=== PATIENT | male | born 1975 | race Caucasian/White ===

== ENCOUNTER 2017-04-19 19:50 | Emergency (ER) | payer BC ==
[~2017-04-19] VITALS: Ht 170.1 cm; Wt 113.4 kg
[~2017-04-19 19:50] MED LIST: AMARYL1 MG PO; ANTIVERT/2525 M1 PO; CHOLESTROL MED; CIPRO500 MG PO; GEMFIBROZIL600 MG PO; GLIMEPIRIDE4 M1 PO; HUMALOG100 U/ML SC; LANTUS100 U/ML SC; LEVAQUIN750 M1 PO; METFORMIN1000 MG PO; PERCOCET 325 MG1 TA7 PO; PRAVASTATIN SOD40 MG PO; XOPENEX HF0.045 MG/A IH; ZOFRAN ODT4 MG SL; [UNRECOGNIZED DRUG - OTHER]
[2017-04-19] MEDS ORDERED: PRAVASTATIN SOD10 MG PO (19:57)
[2017-04-19] MEDS ORDERED: FLONASE ALLERG9.9 ML NAS (20:08)
[2017-04-19] MEDS ORDERED: CLARITIN10 MG PO (20:08)
== END 2017-04-19 20:28 | disposition home or self-care (01) ==
LOC: ED 19:50
DX: B34.9 Viral infection, unspecified (principal); E11.9 Type 2 diabetes mellitus without complications; E78.5 Hyperlipidemia, unspecified; I10 Essential (primary) hypertension; F17.200 Nicotine dependence, unspecified, uncomplicated; Z79.899 Other long term (current) drug therapy

== ENCOUNTER → 2019-11-30 | Outpatient (CLI) | payer BC ==
[~2019-11-30] MED LIST changes: +CLARITIN10 MG PO; +FLONASE ALLERG9.9 ML NAS; +PRAVASTATIN SOD10 MG PO
[2019-11-30 09:54] LABS: ALBUMIN 4.3 gm/dl (3.1-4.5); BUN 19 mg/dl (7-24); CHLORIDE 110 mmol/L (98-107); POTASSIUM 3.8 mmol/L (3.5-5.1); SGPT/ALT 43 U/L (12-78); SODIUM 141 mmol/L (136-145)
[2019-11-30 09:56] LABS: ALKALINE PHOSPHATASE 40 U/L (45-117); SGOT/AST 17 IU/L (3-35); TOTAL PROTEIN 7.3 gm/dL (6.4-8.2); TRIGLYCERIDES 304 mg/dl (<150)
[2019-12-01 08:10] LABS: LDL CHOLESTEROL (DIRECT) 47 mg/dL (0-99)
== END | disposition home or self-care (01) ==
LOC: LAB 08:22
PROVIDERS: Internal Medicine Endocrinology, Diabetes & Metabolism
DX: E11.65 Type 2 diabetes mellitus with hyperglycemia (principal); E78.1 Pure hyperglyceridemia; E55.9 Vitamin D deficiency, unspecified

== ENCOUNTER 2020-01-23 19:06 | Emergency (ER) | payer BC ==
[~2020-01-23] VITALS: Ht 170.1 cm; Wt 111.1 kg
== END 2020-01-23 19:55 | disposition home or self-care (01) ==
LOC: ED 19:06
DX: S61.412A Laceration without foreign body of left hand, initial encounter (principal); E11.9 Type 2 diabetes mellitus without complications; E78.00 Pure hypercholesterolemia, unspecified; Z79.899 Other long term (current) drug therapy; Z79.4 Long term (current) use of insulin; W26.0XXA Contact with knife, initial encounter; Y93.89 Activity, other specified; Y92.89 Other specified places as the place of occurrence of the external cause; Y99.8 Other external cause status

== ENCOUNTER 2020-07-01 20:53 | Emergency (ER) | payer BC ==
[~2020-07-01] VITALS: Ht 170.1 cm; Wt 108.9 kg
[2020-07-01 21:51] LABS: BASO % 0.6 % (0.0-1.0); EOS # 0.2 10*3/uL (0.0-0.4); EOS % 2.6 % (1.0-4.0); HEMATOCRIT 43.1 % (42.0-52.0); LYMPH # 2.1 10*3/uL (1.3-4.4); LYMPH % 31.8 % (27.0-41.0); MEAN CELL VOLUME 90.7 fl (80.0-94.0); MEAN CORPUSCULAR HGB 28.8 pg (27.0-31.0); MEAN CORPUSCULAR HGB CONC 31.8 g/dl (33.0-37.0); MEAN PLATELET VOLUME 9.8 fl (9.6-12.3); MONO # 0.6 10*3/uL (0.1-1.0); MONO % 9.8 % (3.0-9.0); NEUT # 3.6 10*3/uL (2.3-7.9); NEUT % 54.9 % (47.0-73.0); PLATELET COUNT AUTOMATED 244 10*3/uL (130-400); RED BLOOD COUNT 4.75 10*6/uL (4.50-5.90); RED CELL DISTRI WIDTH 13.7 % (0-14.5); WHITE BLOOD COUNT 6.5 10*3/uL (4.8-10.8)
[2020-07-01 21:55] LABS: BILIRUBIN NEGATIVE; CLARITY CLEAR (CLEAR); COLOR YELLOW (YELLOW); GLUCOSE 3+; KETONE NEGATIVE
[2020-07-01 21:56] LABS: BLOOD NEGATIVE (NEGATIVE); LEUKO ESTERASE NEGATIVE (NEGATIVE); NITRITE NEGATIVE (NEGATIVE)
[2020-07-01 22:06] LABS: ALBUMIN 4.1 gm/dl (3.1-4.5); ALKALINE PHOSPHATASE 45 U/L (45-117); BUN 20 mg/dl (7-24); CHLORIDE 110 mmol/L (98-107); CREATININE 1.05 mg/dL (0.70-1.30); POTASSIUM 4.1 mmol/L (3.5-5.1); SGOT/AST 19 IU/L (3-35); SGPT/ALT 36 U/L (12-78); SODIUM 142 mmol/L (136-145); TOTAL PROTEIN 7.2 gm/dL (6.4-8.2)
[2020-07-01 22:13] LABS: RBC 0-2 rbc/hpf (0-2)
== END 2020-07-01 23:00 | disposition home or self-care (01) ==
LOC: ED 20:53
PROVIDERS: Nurse Practitioner Family
DX: E11.649 Type 2 diabetes mellitus with hypoglycemia without coma (principal); I10 Essential (primary) hypertension; Z79.4 Long term (current) use of insulin; Z79.899 Other long term (current) drug therapy

== ENCOUNTER → 2023-07-08 | Outpatient (CLI) | payer BC | END | disposition home or self-care (01) | LOC: RAD 10:07 | PROVIDERS: ATTEND Nurse Practitioner Primary Care | DX: M25.512 Pain in left shoulder (principal) ==

== ENCOUNTER 2023-11-19 05:03 | Emergency (ER) | payer BC ==
[~2023-11-19] VITALS: Ht 170.1 cm; Wt 108.9 kg
[2023-11-19 05:55] LABS: BASO # 0.1 10*3/uL (0.0-0.1); BASO % 0.5 % (0.0-1.0); EOS # 0.1 10*3/uL (0.0-0.4); HEMATOCRIT 45.3 % (42.0-52.0); LYMPH # 1.8 10*3/uL (1.3-4.4); LYMPH % 13.2 % (27.0-41.0); MEAN CELL VOLUME 93.6 fl (80.0-94.0); MEAN CORPUSCULAR HGB 30.4 pg (27.0-31.0); MEAN CORPUSCULAR HGB CONC 32.5 g/dl (33.0-37.0); MEAN PLATELET VOLUME 9.2 fl (9.6-12.3); MONO # 1.1 10*3/uL (0.1-1.0); MONO % 8.6 % (3.0-9.0); NEUT % 75.4 % (47.0-73.0); PLATELET COUNT AUTOMATED 215 10*3/uL (130-400); RED BLOOD COUNT 4.84 10*6/uL (4.50-5.90); RED CELL DISTRI WIDTH 13.4 % (0-14.5); WHITE BLOOD COUNT 13.2 10*3/uL (4.8-10.8)
[2023-11-19 06:16] LABS: ALKALINE PHOSPHATASE 43 U/L (46-116); BUN 16 mg/dl (9-23); CHLORIDE 105 mmol/L (98-107); POTASSIUM 4.5 mmol/L (3.4-5.1); SGPT/ALT 20 U/L (5-49); TOTAL PROTEIN 6.8 gm/dL (6.0-8.0); URIC ACID 6.7 mg/dL (3.7-9.2)
[2023-11-19 07:21] LABS: BILIRUBIN 1+ (Negative); BLOOD 3+ (Negative); CLARITY Turbid (Clear); COLOR Red (Yellow); GLUCOSE 3+ (Negative); KETONE Negative (Negative); LEUKO ESTERASE 2+ (Negative); NITRITE Negative (Negative); SPECIFIC GRAVITY 1.025 (1.001-1.030); UROBILINOGEN 0.2 E.U./dl (0.0-1.0)
[2023-11-19 07:37] LABS: RBC TNTC rbc/hpf (0-2)
== END 2023-11-19 08:43 | disposition home or self-care (01) ==
LOC: ED 05:03
PROVIDERS: Emergency Medicine
DX: R31.9 Hematuria, unspecified (principal); N39.0 Urinary tract infection, site not specified; E11.649 Type 2 diabetes mellitus with hypoglycemia without coma; I10 Essential (primary) hypertension; E78.00 Pure hypercholesterolemia, unspecified; Z87.442 Personal history of urinary calculi; Z88.8 Allergy status to other drugs, medicaments and biological substances; F17.200 Nicotine dependence, unspecified, uncomplicated; Z98.890 Other specified postprocedural states

== ENCOUNTER → 2024-09-15 | Outpatient (CLI) | payer BC | END | disposition home or self-care (01) | LOC: CARD 12:29 | PROVIDERS: ATTEND Social Worker Clinical | DX: Z51.81 Encounter for therapeutic drug level monitoring (principal); Z79.899 Other long term (current) drug therapy; R00.2 Palpitations ==